=== PATIENT | female | born 1990 | race American Indian/Alaskan Native ===

== ENCOUNTER 2020-07-01 11:47 | Emergency (ER) | payer MEDICAID ==
[2020-07-01 12:34] VITALS: BP 152/119
[2020-07-01] MEDS ORDERED: NEOMY 3.5 MG/POLY B 10,000 UNITS/HC 10 MG/ML (OTIC) SUSP 10 ML AU ONE (13:40)
--- NOTE | 2020-07-01 13:53 | Emergency Department Report ---
HPI - General Chief Complaint: Earache Time Seen by Provider: 07/01/20 13:40 - HPI HPI: This is a 29-year-old -[place] female presents to the emergency department with a complaint of a 4 to 5-day history of progressively worsening right ear pain and swelling. It is gotten worse over the past 1 to 2 days. She tried to clean out her ear, but otherwise she has not taken anything for symptoms prior to presentation. No past medical history. She denies any fever, headache, hearing loss. ED Past Medical Hx - Past Medical History Previous Medical History?: No - Surgical History Past Surgical History?: No - Social History Smoking Status: Never Smoker - Medications Home Medications: Home Medications Medication Instructions Recorded Confirmed Last Taken Type Neomy/Polymyx B/Hc (Otic) Soln 4 drops AD TID #1 bottle 07/01/20 Unknown Rx [Cortisporin (Otic) Soln] ED Review of Systems ROS: Stated complaint: (R) EAR INFECTION Other details as noted in HPI Comment: All other systems reviewed and negative Constitutional: denies: chills, fever ENT: ear pain. denies: throat pain Respiratory: denies: shortness of breath Cardiovascular: denies: chest pain Neurological: denies: headache Physical Exam - Physical Exam Vital Signs: Vital Signs 07/01/20 12:32 Temperature 98.3 F Pulse Rate 89 Respiratory 16 Rate Blood Pressure 152/119 O2 Sat by Pulse 100 Oximetry Physical Exam: GENERAL: The patient is well-developed well-nourished. HENT: Normocephalic. Atraumatic. Patient has moist mucous membranes. Normal-appearing left-sided external ear canal and bilateral tympanic membranes. The right external ear canal is slightly erythematous and is severely swollen. There is a small amount of white discharge in the canal. EYES: Extraocular motions are intact. NECK: Supple. Trachea is midline. SKIN: Skin is warm and dry. NEURO: The patient is awake, alert, and oriented. The patient is cooperative. The patient has no focal neurologic deficits. Normal speech. MUSCULOSKELETAL: There is no tenderness or deformity. ED Course Vital Signs 07/01/20 12:32 Temperature 98.3 F Pulse Rate 89 Respiratory 16 Rate Blood Pressure 152/119 O2 Sat by Pulse 100 Oximetry ED Medical Decision Making - Medical Decision Making Patient has a significant right-sided otitis externa. An ear wick was placed and a few drops of Cortisporin otic was placed expanding the wick. The patient will go home on this medication 3 times daily for 7 days. The earache will need to be removed in 2 days and the patient is aware of this. Vital signs are reassuring. She will return to the ER with any worsening of her symptoms or wi th any acute distress. Critical Care Time: No Critical care attestation.: If time is entered above; I have spent that time in minutes in the direct care of this critically ill patient, excluding procedure time. ED Disposition Clinical Impression: Otitis externa Qualifiers: Otitis externa type: unspecified type Chronicity: acute Laterality: right Qualified Code(s): H60.501 - Unspecified acute noninfective otitis externa, right ear Disposition: TO HOME OR SELFCARE Is pt being admited?: No Condition: Stable Instructions: Otitis Externa (ED) Additional Instructions: Please follow-up with a primary care physician in the next few days. The ear wick will need to be removed in 2 days and this can be done at a primary care office, urgent care, or back in the emergency department. Use the antibiotic drops as prescribed. Return to the emergency department with any worsening of your symptoms or with any acute distress. Prescriptions: Neomy/Polymyx B/Hc (Otic) Soln [Cortisporin (Otic) Soln] 4 drops AD TID #1 bottle Referrals: BOSSMAN EDENALBION MD QUIN [Primary Care Provider] - 3-5 Days CLYDE CHRISTIANSON MD [Staff Physician] - 3-5 Days [facility] [Provider Group] - 3-5 Days Time of Disposition: 14:46
== END 2020-07-01 15:33 | disposition home or self-care (01) ==
LOC: ED 11:47
DX: H60.91 Unspecified otitis externa, right ear (principal); Z79.899 Other long term (current) drug therapy
CPT/HCPCS: 99281